=== PATIENT | male | born 1955 | race Caucasian/White ===

== ENCOUNTER 2025-05-13 17:06 | Emergency (ER) | payer MEDICARE, MEDICAID ==
[~2025-05-13] VITALS: Ht 152.4 cm; Wt 84.0 kg
[2025-05-13 17:21] VITALS: O2SAT 97
[2025-05-13 18:13] LABS: BASOPHILS % 0.5 % (0.0-2.0); EOSINOPHILS % 1.3 % (0.0-5.0); HEMATOCRIT. 45.5 % (42.0-52.0); HEMOGLOBIN. 15.5 g/dL (14.0-18.0); LYMPHOCYTES % 28.6 % (20.0-50.0); MEAN PLATELET VOLUME 11.3 fl (7.4-10.4); MONOCYTES % 14.6 % (2.0-8.0); NEUTROPHILS % 55.0 % (40.0-76.0); PLATELET 191 x1000/uL (130-400); RED BLOOD CELL COUNT 4.68 mill/uL (4.7-6.1); RED CELL DISTRIBUTION WIDTH 13.8 % (11.6-14.6)
[2025-05-13 18:17] LABS: CLARITY URINE CLEAR (CLEAR); GLUCOSE URINE 3+ (NEGATIVE); KETONES URINE 1+ (NEGATIVE); LEUKOCYTE ESTERASE URINE NEGATIVE (NEGATIVE); NITRITE URINE NEGATIVE (NEGATIVE); OCCULT BLOOD URINE TRACE (NEGATIVE); PH URINE 5.0 (4.5-8.0); PROTEIN URINE TRACE (NEGATIVE); SPECIFIC GRAVITY URINE 1.038 (1.005-1.030); UROBILINOGEN URINE 0.2 E.U./dL (0.2-1.0)
[2025-05-13 18:30] LABS: CREATININE 1.2 mg/dL (0.6-1.3); UREA NITROGEN BLOOD 15 mg/dL (9-23)
[2025-05-13 18:51] LABS: COLOR URINE STRAW (YELLOW)
[2025-05-13 18:52] LABS: BACTERIA URINE NONE SEEN; RBC URINE NONE SEEN /hpf (0-2); SQUAMOUS EPITHELIAL CELL URINE RARE /lpf (RARE/1+)
[2025-05-13] MEDS: HYDRALAZINE 20MG/ML VIAL IV ONE (20:24)
[2025-05-13] MEDS: SODIUM CHLORIDE 0.9% 1,000 ML IV ONE (20:26)
[2025-05-13] MEDS: INSULIN REGULAR (HUMULIN R) 1000UNITS/10ML VIAL IV ONE (20:26)
[2025-05-14 02:30] VITALS: BP 165/88; PULSE 77; RESP 15; TEMP 36.8; O2SAT 99
== END 2025-05-14 02:31 | disposition home or self-care (01) ==
LOC: ER 17:06
DX: E11.65 Type 2 diabetes mellitus with hyperglycemia (principal); I10 Essential (primary) hypertension; E78.00 Pure hypercholesterolemia, unspecified
CPT/HCPCS: 99285; 96374; 96361; 96375; 80048; 81003; 82962; 85025; 36415; J0360; J7030; J1815

== ENCOUNTER 2025-07-12 13:09 | Emergency (ER) | payer MEDICARE, MEDICAID ==
[~2025-07-12] VITALS: Ht 157.5 cm; Wt 84.0 kg
[2025-07-12 13:24] VITALS: O2SAT 99
[2025-07-12] MEDS ORDERED: BLOO1KIT74 TP (14:34)
[2025-07-12] MEDS ORDERED: [UNRECOGNIZED DRUG - CODE] MC (14:34)
[2025-07-12 15:06] VITALS: BP 126/86; PULSE 74; RESP 18; TEMP 36.7; O2SAT 99
== END 2025-07-12 15:07 | disposition home or self-care (01) ==
LOC: ER 13:09
DX: I10 Essential (primary) hypertension (principal); E78.00 Pure hypercholesterolemia, unspecified; E11.9 Type 2 diabetes mellitus without complications; Z55.6 Problems related to health literacy; Z79.899 Other long term (current) drug therapy
CPT/HCPCS: 82962; 99282